=== PATIENT | female | born 1975 ===

== ENCOUNTER 2018-06-20 11:52 | Outpatient (CLI) | payer OTHER ==
[~2018-06-20] VITALS: Ht 167.6 cm; Wt 65.8 kg
== END 2018-06-20 12:15 | disposition home or self-care (01) ==
LOC: OFIC 805 11:52
DX: H61.23 Impacted cerumen, bilateral (principal); J30.89 Other allergic rhinitis; R09.81 Nasal congestion

== ENCOUNTER 2018-08-02 12:07 | Outpatient (CLI) | payer OTHER ==
[~2018-08-02] VITALS: Ht 152.4 cm; Wt 65.8 kg
== END 2018-08-02 17:00 | disposition home or self-care (01) ==
LOC: OFIC 805 12:07
DX: J30.89 Other allergic rhinitis (principal); R09.81 Nasal congestion

== ENCOUNTER 2020-03-28 07:34 | Outpatient (CLI) | payer OTHER ==
[~2020-03-28] VITALS: Ht 152.4 cm; Wt 68.0 kg
== END 2020-03-28 14:24 | disposition home or self-care (01) ==
LOC: OFIC 805 07:34
PROVIDERS: ATTEND Otolaryngology
DX: R09.81 Nasal congestion (principal); H61.23 Impacted cerumen, bilateral; J30.89 Other allergic rhinitis; R49.0 Dysphonia; J38.3 Other diseases of vocal cords

== ENCOUNTER 2020-04-25 09:04 | Outpatient (CLI) | payer OTHER | END 2020-04-25 13:00 | disposition home or self-care (01) | LOC: OFIC 805 09:04 | PROVIDERS: ATTEND Otolaryngology | DX: R49.0 Dysphonia (principal); J38.3 Other diseases of vocal cords; R09.81 Nasal congestion; J30.89 Other allergic rhinitis ==

== ENCOUNTER 2020-05-13 07:28 | Day surgery (SDC) | payer OTHER | END 2020-05-13 14:20 | disposition home or self-care (01) | LOC: CIR.AMB 07:28 | PROVIDERS: ATTEND Otolaryngology | DX: J38.3 Other diseases of vocal cords (principal); Z20.828 Contact with and (suspected) exposure to other viral communicable diseases ==

== ENCOUNTER → 2020-05-16 | Outpatient (CLI) | payer OTHER | END | disposition home or self-care (01) | LOC: OFIC 805 10:01 | PROVIDERS: ATTEND Otolaryngology | DX: R49.0 Dysphonia (principal); J38.2 Nodules of vocal cords ==

== ENCOUNTER 2020-07-04 09:03 | Outpatient (CLI) | payer OTHER | END 2020-07-04 10:03 | disposition home or self-care (01) | LOC: OFIC 805 09:03 | PROVIDERS: ATTEND Otolaryngology | DX: J38.2 Nodules of vocal cords (principal); R49.0 Dysphonia ==